=== PATIENT | female | born 1935 | race Caucasian/White ===

== ENCOUNTER → 2018-07-10 09:02 | Outpatient (CLI) | payer OTHER, SELFPAY ==
--- NOTE | 2018-07-10 09:07 | DI.ECHO.S_ITS ---
[facility]+ [facility] +---------+ : : [address] : [address] : : : : [id number] : : : : Phone: [phone]+ Echocardiogram Report + + :Name: ALEX FLOWER Study Date: 07/10/2018 Height: 64 in : :[facility] Exam Location: [facility] Weight: 174 lb : : Gender: Female BSA: 1.8 m2 : :: 1935 Age: 83 yrs BP: 122/68 mmHg: :Reason For Study: OLD MA : :Ordering Physician: Bobo : :German Performed By: Coleen Enrique : :Referring: Bobo Porter : + + Interpretation Summary Left ventricular systolic function is normal with the ejection fraction estimated to be 60-65% with a possible very small, focal area of hypokinesis in the very distal inferoseptal apex but no other regional wall motion abnormalities. The right ventricle is normal in size and function. Right ventricular systolic pressure is estimated to be 34 mmHg plus the clinically estimated CVP which cannot be estimated on this exam. The left atrium is mildly dilated while right atrial size is normal. There is mild tricuspid regurgitation but no other significant valvular heart disease. There is a large, heterogenic echogenic mass in the IVC measuring 4.2 cm in diameter that appears to originate around the level of the renal veins and extends to the IVC/right atrial junction but does not appear to occupy significant space within the right atrium itself. This mass appears to be fairly occlusive with reduced IVC flow. This would be consistent with a renal cell carcinoma that has been previously suspected. Procedure: A two-dimensional transthoracic echocardiogram with color flow and Doppler was performed. The study quality was technically adequate. There is no prior echocardiogram noted for this patient. The patient was in normal sinus rhythm during the exam. Left Ventricle: The left ventricle is normal in size. There is normal left ventricular wall thickness. Left ventricular systolic function is normal. The ejection fraction is estimated to be 60-65%. There may be a very small, focal area of hypokinesis in the very distal inferoseptal apex but no other regional wall motion abnormalities. Diastolic parameters suggest a relaxation abnormality of the left ventricle, consistent with probable normal filling pressures. Right Ventricle: The right ventricle is normal in size and function. Atria: The left atrium is mildly dilated. Right atrial size is normal. There is no Doppler evidence for an interatrial shunt. Mitral Valve: The mitral valve leaflets appear borderline thickened, but open well. There is trace mitral regurgitation. Aortic Valve: The aortic valve is trileaflet. There is mild aortic valve sclerosis. The aortic valve opens well. There is trace aortic regurgitation. Tricuspid Valve: The tricuspid valve is normal. There is mild tricuspid regurgitation. Right ventricular systolic pressure is estimated to be 34 mmHg plus the clinically estimated CVP which cannot be estimated on this exam. Pulmonic Valve: The pulmonic valve is not well visualized. There is trace pulmonic regurgitation. There is no other significant valvular heart disease. Great Vessels: The aortic root is normal size. The ascending aorta is normal in size. The aortic arch is normal in size. The pulmonary is not well visualized. There is a large, heterogenic echogenic mass in the IVC measuring 4.2 cm in diameter that appears to originate around the level of the renal veins and extends to the IVC/right atrial junction but does not appear to occupy significant space within the right atrium itself. This mass appears to be fairly occlusive with reduced IVC flow. This would be consistent with a renal cell carcinoma that has been previously suspected. Pericardium/ Pleura There is no pericardial effusion. There is no pleural effusion. MMode/2D Measurements & Calculations LVIDd: 4.0 cm LVOT diam: 2.4 cm LVIDs: 3.0 cm Ao root diam: 3.6 cm FS: 27.0 % asc Aorta Diam: 3.0 cm EPSS: 0.40 cm Ao Arch Diam (Prox Trans): 2.5 cm IVSd: 1.0 cm LVPWd: 0.98 cm LV tay. diameter/BSA (cm/m^2): 2.2 LV sys. diameter/BSA (cm/m^2): 1.6 LA A2 area: 19.9 cm2 RA long axis: 4.6 cm LA A4 area: 21.2 cm2 RA area: 13.3 cm2 LA length (vol): 5.2 cm RA vol: 32.5 ml LA vol: 68.7 ml RA : 17.7 ml/m2 LA vol index: 37.3 ml/m2 RVD1 (basal): 4.4 cm RVD2 (mid): 2.8 cm TAPSE: 2.2 cm Doppler Measurements & Calculations Ao V2 max: 113.9 cm/sec LVOT Max Raman: 93.6 cm/sec Ao V2 mean: 72.8 cm/sec LV V1 max P.5 mmHg Ao max P.2 mmHg LV V1 VTI: 19.4 cm Ao mean P.7 mmHg SHANNAN(I,D): 3.8 cm2 Ao V2 VTI: 22.2 cm SHANNAN(V,D): 3.6 cm2 sev ratio: 0.87 SHANNAN indexed to BSA (cm^2/m^2): 2.1 MV E max raman: 69.7 cm/sec TR max raman: 289.7 cm/sec MV A max raman: 103.2 cm/sec TR max P.6 mmHg MV E/A: 0.68 PA V2 max: 99.1 cm/sec Med Peak E' Raman: 7.1 cm/sec PA V2 mean: 62.9 cm/sec E/E' med: 9.9 PA mean P.8 mmHg Lat Peak E' Raman: 8.3 cm/sec PA pr(Accel): 51.6 mmHg E/E' lat: 8.4 E/e' average: 9.2 MV dec time: 0.26 sec MV P1/2t: 75.9 msec MV P1/2t max raman: 68.4 cm/sec MVA(P1/2t): 2.9 cm2 Reading Physician:MURIEL
== END ==
PROVIDERS: Family Provider Internal Medicine; PCP Internal Medicine; Visit Provider Physician Assistant Medical
DX: I08.2 Rheumatic disorders of both aortic and tricuspid valves (principal); I25.2 Old myocardial infarction
CPT/HCPCS: 93306

== ENCOUNTER → 2018-07-10 09:08 | Outpatient (CLI) | payer OTHER, SELFPAY ==
--- NOTE | 2018-07-10 09:10 | DI.MRI.S_ITS ---
PROCEDURE: MR ABDOMEN WO/W CON INDICATIONS: RIGHT RENAL MASS TECHNIQUE: Coronal HASTE through abdomen and pelvis; axial 2D FLASH in- and [id number] (with and without fat saturation), and breath-hold T2 FSE from the hepatic dome to the bottom of the kidneys. Coronal HASTE MR urogram of kidneys and bladder. Dynamic coronal VIBE during IV gadolinium administration; postgadolinium axial VIBE or 2D FLASH with fat saturation from the hepatic dome through the kidneys. COMPARISON: [facility], US, US RENAL COMPLETE, 06/20/2018, 19:14. Outside Film, CT, CT ABDOMEN PELVIS WITH/WITHOUT CONTRAST, 06/15/2018, 19:46. [facility], CT, CT NECK CHEST ABD PELVIS W CON, 04/30/2015, 13:24. FINDINGS: Image quality: Excellent. Genitourinary system: There is a large malignant appearing mass involving the right kidney over his upper and middle thirds, with maximal craniocaudad dimension of 9.6 cm in maximal transverse dimension of 7.2 cm. There is a maximal AP dimension of 6.9 cm. This lesion is associated with tumor invasion into the right renal vein which is expanded and the tumor extends directly from that vessel into the inferior vena cava, extending mildly inferior retrograde within the IVC and antegrade cephalad towards the heart. Its upper extent terminates at the origin of the suprahepatic IVC, and a small portion of the mass extends slightly into the orifice of the left renal vein, which does not appear occluded. Other solid organs: No additional solid or hollow organ malignant appearing lesion is found. Note is made of what appears to be a small splenule or complex at the anterior splenic margin measuring only 1.8 cm in diameter. 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 Nodes and vessels: No adenopathy is seen. Bowel and peritoneum: No bowel lesion found. Lung bases: No lesion found by MR scanning but review of outside CT scanning of the abdomen/pelvis without contrast that included the lung bases shows scattered small pulmonary nodules worrisome for representing early pulmonary metastatic disease in this clinical circumstance. Bones and soft tissues: No lesions found. 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 This mass also extends to a small degree into the left renal vein, without occlusion. It also extends retrograde mildly into the inferior vena cava below the level of the insertion of the right renal vein. Please refer to prior CT scanning from an outside hospital discussing small pulmonary nodules, consistent with likelihood of early pulmonary metastatic disease in this clinical circumstance. That CT was performed at [facility]. Mild hydronephrosis at the left kidney but likely chronic and due to ureteropelvic junction stenosis. A left sided urothelial mass or urinary tract stone is not seen. Dictated by: Peter Dash M.D. on 07/10/2018 at 12:21 Approved by: Peter Dash M.D. on 07/10/2018 at 12:44
[2018-07-10 09:55] LABS: Blood Urea Nitrogen 12 mg/dL (7-17); Calcium 9.4 mg/dL (8.4-10.2); Carbon Dioxide 29 mmol/L (22-32); Chloride 104 mmol/L (98-107); Estimated Glomerular Filt Rate 43.1 mL/min (>60); Glucose 108 mg/dL (80-110); HEMOLYSIS < 15 (0-50); Potassium 5.2 mmol/L (3.4-5.1); Sodium 142 mmol/L (137-145)
== END ==
PROVIDERS: Family Provider Internal Medicine; PCP Internal Medicine; Visit Provider Specialist
DX: D41.01 Neoplasm of uncertain behavior of right kidney (principal); N13.30 Unspecified hydronephrosis; R91.8 Other nonspecific abnormal finding of lung field
CPT/HCPCS: 36415; 74183; 80048; 93306

== ENCOUNTER → 2018-07-13 14:08 | Outpatient (CLI) | payer OTHER, SELFPAY ==
--- NOTE | 2018-07-13 | DI.CT.S_ITS ---
PROCEDURE: CT CHEST W CON INDICATIONS: RENAL CELL CARCINOMA TECHNIQUE: After the administration of intravenous contrast, 5 mm thick sections acquired from the pulmonary apices to the posterior costophrenic angles. 7 mm thick coronal and sagittal MIP reformats were acquired. For radiation dose reduction, the following was used: automated exposure control, adjustment of mA and/or kV according to patient size. COMPARISON: [facility], MR, MR ABDOMEN WO/W CON, 07/10/2018, 11:06. Outside Film, CT, CT ABDOMEN PELVIS WITH/WITHOUT CONTRAST, 06/15/2018, 19:46. FINDINGS: Image quality: Excellent. Lungs and pleura: No definite acute acute air space opacities there are several scattered bilateral pulmonary nodules ranging in size from 3-4 mm, potentially a manifestation of metastatic disease as clinical circumstance. These were previously present 06/15/18. No pleural effusions or pneumothorax. Central and peripheral airways are patent and normal in caliber. Mediastinum: Heart size is normal. No pericardial effusion. There is suspicious mediastinal and hilar adenopathy by size criteria with a single right-sided middle third 1.5 cm short axis dimension lymph node seen on series 2 image 36 and a second prominent lymph node in the subcarinal space at the posterior midline of the mediastinum measuring up to 1.6 cm short axis dimension. Thoracic aorta and central pulmonary arteries are normal in size. Esophagus is normal in caliber. No hiatal hernia. Bones and chest wall: No suspicious bony lesions. No vertebral body compression fractures. No axillary or supraclavicular adenopathy by size criteria. Thyroid gland appears normal where well visualized. Abdomen: Visualized upper abdominal solid organs appear unchanged, with a large previously documented malignant appearing right renal malignancy showing renal vein tumor extension into the IVC which is enlarged by tumor invasion to a maximal caliber of 5.0 cm oblique AP and 4.3 cm oblique transverse. The full extent of this renal mass was better seen by MR scanning obtained 3 days ago. Upper abdominal bowel loops are normal in caliber. IMPRESSION: Prior CT scanning from [facility] dated 06/15/18 had identified scattered small pulmonary nodules and these are again seen at the lung bases. The appearance is nonspecific, could be secondary to granulomatous disease, and none of these nodules is of a size that would allow safe CT guided biopsy. These nodules measure between 3 and 4 mm in size. Again noted is a large malignant appearing right renal mass, partially visualized by this study, and extending into the inferior vena cava enlarging its maximal diameter to up to 5 cm. Note is made within the middle third of the right hilum and within the subcarinal space of the posterior mediastinum mildly enlarged lymph nodes by size criteria in short axis dimension. Early malignant adenopathy is a significant concern given this appearance. Nuclear medicine PET CT scanning may be warranted to assist in accurately staging this patient. Dictated by: Peter Dash M.D. on 07/13/2018 at 14:45 Approved by: Peter Dash M.D. on 07/13/2018 at 14:54
== END ==
PROVIDERS: Family Provider Internal Medicine; PCP Internal Medicine; Visit Provider Specialist
DX: C64.9 Malignant neoplasm of unspecified kidney, except renal pelvis (principal)
CPT/HCPCS: 71260; Q9967